=== PATIENT | male | born 1960 | race Caucasian/White ===

== ENCOUNTER 2022-02-24 09:37 | Day surgery (SDC) | payer BC ==
[2022-02-24] VITALS (16 sets, daily range): BP systolic 115–166; BP diastolic 64–92; PULSE 52–63; TEMP 97.5–98.6
[~2022-02-24] VITALS: Ht 185.4 cm; Wt 96.4 kg
[~2022-02-24 09:37] MED LIST: NO HOME MEDICATIONS
--- NOTE | 2022-02-24 09:47 | NUR ---
PT IN ROOM. PT SIGNED CONSENT FORM AND ALL QUESTIONS AT THIS TIME ANSWERED. PT AMBULATED TO ROOM WITHOUT ISSUE, RESP REG AND UNLABORED AND NO SIGNS OF DISTRESS,
[2022-02-24 10:42] LABS: HEMOGLOBIN 11.5 g/dl (13.5-18.0); MEAN CELL VOLUME 80 fl (80.0-100.0); MEAN CORPUSCULAR HEMOGLOBIN 25 pg (27-31); MEAN CORPUSCULAR HGB CONC 31 g/dl (33.0-37.0); MEAN PLATELET VOLUME 10.3 fl (7.4-10.4); PLATELET COUNT 260 K/mm3 (130-400); RED BLOOD COUNT 4.63 M/mm3 (4.20-5.60); REDCELL DISTRIBUTION WIDTH-CV 15.6 % (11.5-14.5)
[2022-02-24 10:44] LABS: HEMATOCRIT 36.9 % (42.0-52.0)
--- NOTE | 2022-02-24 10:44 | NUR ---
PT PREPARED FOR SHAREPOINT SPECIALIST, FLUIDS RUNNING, MEDICATIONS GIVEN, VSS.
--- NOTE | 2022-02-24 10:45 | NUR ---
DR. [facility].
[2022-02-24 10:48] LABS: INR 1.1 (0.8-3.0); PROTHROMBIN TIME 12.4 SECONDS (9.7-12.8)
[2022-02-24 10:51] LABS: PARTIAL THROMBOPLASTIN TIME 30.2 SECONDS (26.0-37.0)
[2022-02-24 10:55] LABS: CALCIUM 8.6 mg/dL (8.4-10.2); CREATININE, serum 0.98 mg/dL (0.72-1.25); POTASSIUM 4.1 mmol/L (3.5-4.5)
--- NOTE | 2022-02-24 12:00 | NUR ---
SEE MERGE FOR ALL MEDICATION ADMINISTRATION TIMES, INTRA AND POST SEDATION ASSESSMENTS
--- NOTE | 2022-02-24 13:04 | NUR ---
PT DID NOT COME BACK TO [facility]. PT WAS ADMITTED TO MEDICAL
[2022-02-24] MEDS ORDERED: CRESTOR 10MG10 MG PO (15:05)
[2022-02-24] MEDS ORDERED: ASPIRIN 81M81 MG/TA2 PO (15:05)
[2022-02-24] MEDS ORDERED: ZESTRIL 10MG10 MG PO (15:05)
[2022-02-24] MEDS ORDERED: TOPROL XL 25MG25 MG PO (15:06)
[2022-02-24] MEDS ORDERED: NITROSTAT0.4 MG/TAB SL (15:07)
--- NOTE | 2022-02-24 15:19 | NUR ---
PT ADMITTED TO UNIT. ADMISSION INTAKE AND ASSESSMENT COMPLETED. MED REC UPDATED. PT AND ORIENTED TO ROOM. PT POST HEART CATH, VSS, DENIES ANY PAIN OR NEEDS. R RADIAL SITE HAS NO DRAINAGE, TR BAND IN PLACE. IVF INFUSING. WILL CONTINUE TO MONITOR.
--- NOTE | 2022-02-25 00:40 | NUR ---
Pt alert and oriented. Follows commands. Denies chest pain/SOB at this time. Right radial cardiac catheterization site soft/non-tender. No bleeding/drainage/hematoma/edema noted. Post-op VS finished and completed. Pt up to void independently. IV fluids continued per orders. VS stable. On room air. Telemetry on. Shift assessment performed. Medications administered per orders and education provided. No significant skin issues noted. Bed low and locked, call perez within reach. No other concerns at this time.
[2022-02-25 04:15] VITALS: BP 141/73; PULSE 67; TEMP 97.4
--- NOTE | 2022-02-25 06:03 | NUR ---
No adverse events overnight. Pt alert and oriented. Right radial site remains soft. No bleeding/hematoma/bruising noted. Radial pulses 2+ bilaterally. VS stable. On room air. Telemetry on. Bed low and locked, call perez within reach. No other concerns at this time.
[2022-02-25 06:16] LABS: BASO # 0.1 K/mm3 (0.0-0.2); BASO % 0.6 % (0.0-2.0); EOS # 0.2 K/mm3 (0.0-0.7); EOS % 2.5 % (0.0-4.0); GRAN # 6.1 K/mm3 (1.4-6.5); GRAN % 71.4 % (42.2-75.2); HEMOGLOBIN 11.4 g/dl (13.5-18.0); LYMPH # 1.5 K/mm3 (1.2-3.4); LYMPH % 17.4 % (20.0-51.0); MEAN CELL VOLUME 77 fl (80.0-100.0); MEAN CORPUSCULAR HEMOGLOBIN 25 pg (27-31); MEAN CORPUSCULAR HGB CONC 32 g/dl (33.0-37.0); MEAN PLATELET VOLUME 10.4 fl (7.4-10.4); MONO # 0.7 K/mm3 (0.1-0.6); MONO % 7.6 % (1.7-9.3); PLATELET COUNT 279 K/mm3 (130-400); RED BLOOD COUNT 4.55 M/mm3 (4.20-5.60); REDCELL DISTRIBUTION WIDTH-CV 15.4 % (11.5-14.5)
[2022-02-25 06:19] LABS: HEMATOCRIT 35.2 % (42.0-52.0)
[2022-02-25 06:31] LABS: CALCIUM 8.6 mg/dL (8.4-10.2); CREATININE, serum 1.02 mg/dL (0.72-1.25); POTASSIUM 4.1 mmol/L (3.5-4.5)
[2022-02-25 08:00] VITALS: BP 142/72; BP 144/72; PULSE 64; TEMP 98.2
--- NOTE | 2022-02-25 09:15 | NUR ---
PT RESTING IN BED. MORNING MEDICATIONS GIVEN. SHIFT ASSESSMENT COMPLETED. PT DENIES ANY PAIN, NEEDS, SOB. R RADIAL SITE C/D/I WITH SMALL AMOUNT OF BRUISING. WILL CONTINUE TO MONITOR.
[2022-02-25] MEDS ORDERED: BRILINTA90 MG PO (09:35)
--- NOTE | 2022-02-25 11:34 | NUR ---
Reviewed discharge instructions for radial heart catheterization. Cleaning site with mild soap and water, pat dry. Discussed monitoring for redness, hot to touch, inflammation, or temperature >100.4. Discussed when to contact the physician for signs of symptoms of complications or MS. Also reviewed risk factors for heart disease. Covered applicable modifiable risk factors including the following: tobacco cessation, HTN, hyperlipidemia, diabetes, overweight/obesity, sedentary lifestyle, and stress/depression. Patient verbalized understanding. Referral sent to [facility] with patient s permission. scheduled to start Cardiac Rehab 03/04/22 at 11:15am. Approx 10 minutes spent with patient, 5 minutes of chart review.
--- NOTE | 2022-02-25 11:36 | NUR ---
Discharge instructions for radial heart catheterization left with for patient. Cleaning site with mild soap and water, pat dry. Discussed monitoring for redness, hot to touch, inflammation, or temperature >100.4. Discussed when to contact the physician for signs of symptoms of complications or SC. Also reviewed risk factors for heart disease. Covered applicable modifiable risk factors including the following: tobacco cessation, HTN, hyperlipidemia, diabetes, overweight/obesity, sedentary lifestyle, and stress/depression. Patient verbalized understanding. Referral sent to [facility] with patient s permission. Staff will follow up next if unable to review /schedule to day. 5 minutes of chart review.
--- NOTE | 2022-02-25 12:00 | NUR ---
DISCHARGE INSTRUCTIONS GIVEN, AT BEDSIDE, ALL QUESTIONS ANSWERED. IV D/C. TELE D/C. WILL D/C FROM SYSTEM.
== END 2022-02-25 12:02 | disposition home or self-care (01) ==
LOC: COL.CAR 09:37 → MEDICAL 15:19 → COL.CAR 02-25 12:02
PROVIDERS: Internal Medicine Cardiovascular Disease
DX: I25.119 Atherosclerotic heart disease of native coronary artery with unspecified angina pectoris (principal); I10 Essential (primary) hypertension; I51.7 Cardiomegaly; I34.0 Nonrheumatic mitral (valve) insufficiency; E78.2 Mixed hyperlipidemia; Z79.899 Other long term (current) drug therapy
CPT/HCPCS: OP; C1769; C1874; C1887; C9600; J0583; J1644; J2250; J3010

== ENCOUNTER → 2022-03-17 | Outpatient (RCR) | payer BC ==
[~2022-03-17] MED LIST changes: +ASPIRIN 81M81 MG/TA2 PO; +BRILINTA90 MG PO; +CRESTOR 10MG10 MG PO; +NITROSTAT0.4 MG/TAB SL; +TOPROL XL 25MG25 MG PO; +ZESTRIL 10MG10 MG PO
== END | disposition home or self-care (01) ==
LOC: COL.CR
DX: Z48.812 Encounter for surgical aftercare following surgery on the circulatory system (principal); Z95.5 Presence of coronary angioplasty implant and graft